=== PATIENT | female | born 1965 | race Caucasian/White ===

== ENCOUNTER → 2017-09-24 | Outpatient (CLI) | payer OTHER, MEDICAID ==
[~2017-09-24] MED LIST: CYCL-259 PO; HYDR-3307 PO; METH750T2 PO; NICO-430 TD; SIMV10TA3 PO; TRAM50TA2 PO; hydrocodone PO; singulair PO
== END | disposition home or self-care (01) ==
LOC: CFH 16:52
PROVIDERS: ATTEND Nurse Practitioner
DX: M47.812 Spondylosis without myelopathy or radiculopathy, cervical region (principal); Z98.890 Other specified postprocedural states
CPT/HCPCS: 72040

== ENCOUNTER → 2017-11-27 | Outpatient (CLI) | payer OTHER, MEDICAID | END | disposition home or self-care (01) | LOC: CFH 16:53 | PROVIDERS: ATTEND Pain Medicine Pain Medicine | DX: M79.672 Pain in left foot (principal) ==

== ENCOUNTER 2018-06-04 16:14 | Emergency (ER) | payer MEDICAID, OTHER ==
[~2018-06-04] VITALS: Ht 162.6 cm; Wt 80.4 kg
[2018-06-04] MEDS ORDERED: ONDANSETRON ODT 4 MG ONE (16:48)
[2018-06-04] MEDS ORDERED: ASPIRIN 81 MG TABLET CHEW ONE (16:48)
--- NOTE | 2018-06-04 16:50 | NUR ---
Assumed care of patient. C/O left sided CP wrapping around to back x 5 days. Pain is constant, but increases with movement and deep inspiration. Placed on NIBP, pulse ox and cardiac rehabilitation specialist. ASA and zofran admin. Will continue to monitor.
[2018-06-04] MEDS ORDERED: ASPIRIN 81 MG TABLET CHEW PO ONE (17:00)
[2018-06-04] MEDS ORDERED: ONDANSETRON ODT 4 MG PO ONE (17:00)
[2018-06-04 17:28] LABS: BASOPHILS # (AUTO) 0.02 x10^3/uL (0-0.1); BASOPHILS % (AUTO) 1 % (0-1); EOSINOPHILS # (AUTO) 0.12 x10^3/uL (0-0.4); EOSINOPHILS % (AUTO) 3 % (1-7); LYMPHOCYTES # (AUTO) 2.21 x10^3/uL (1-3.4); LYMPHOCYTES % (AUTO) 47 % (22-44); MD NO; MEAN CORPUSCULAR HEMOGLOBIN 29.1 pg (27.0-34.8); MEAN CORPUSCULAR HGB CONC 34.6 g/dL (32.4-35.8); MEAN CORPUSCULAR VOLUME 83.9 fL (80-100); MEAN PLATELET VOLUME 10.1 fL (7.4-10.4); MONOCYTES # (AUTO) 0.27 x10^3/uL (0.2-0.8); MONOCYTES % (AUTO) 6 % (2-9); NEUTROPHILS # (AUTO) 2.04 x10^3/uL (1.8-6.8); NEUTROPHILS % (AUTO) 44 % (42-75); PLATELET COUNT 219 x10^3/uL (130-400); RED BLOOD COUNT 5.05 x10^6/uL (3.82-5.3); RED CELL DISTRIBUTION WIDTH 13.1 % (9.6-15.2)
--- NOTE | 2018-06-04 17:28 | NUR ---
Ambulated to restroom with a steady gait. No other needs.
[2018-06-04 17:33] LABS: ALBUMIN 4.4 g/dL (3.4-5.0); ANION GAP 7 mmol/L (5-15); CALCIUM 9.7 mg/dL (8.5-10.1); CHLORIDE 108 mmol/L (98-107); CREATININE 0.77 mg/dL (0.55-1.02)
[2018-06-04 17:37] LABS: TROPONIN I < 0.015 ng/mL (0.000-0.045)
[2018-06-04 17:52] VITALS: BP 130/67
[2018-06-04] MEDS ORDERED: HYDROcodone/APAP 10/325 MG TABLET ONE (18:09)
[2018-06-04] MEDS ORDERED: HYDROcodone/APAP 10/325 MG TABLET PO ONE (18:30)
--- NOTE | 2018-06-04 18:37 | NUR ---
Patient/Caregiver given discharge instructions and they have confirmed that they understand the instructions. Patient ambulatory with steady gait.
== END 2018-06-04 18:38 | disposition home or self-care (01) ==
LOC: ED 18:32
DX: R07.89 Other chest pain (principal); R09.1 Pleurisy
CPT/HCPCS: 36415; 71046; 80048; 82040; 84484; 85025; 85379; 93005; 99284; J7512; Q0162

== ENCOUNTER 2019-07-29 12:09 | Outpatient (CLI) | payer MEDICAID ==
[~2019-07-29 12:09] MED LIST changes: +BUSPIRONE PO; +CYCLOBENZAPRINE PO; +DULOXETINE PO; +HYDR-3246 PO; -HYDR-3307 PO; +OXYCODONE PO; +SIMV10TA18 PO; -SIMV10TA3 PO; +SIMV20TA19 PO
[2019-07-29] MEDS ORDERED: GADOTERATE 7.5 MMOL/15 ML SYR ONE (18:01)
== END 2019-07-29 23:59 | disposition home or self-care (01) ==
LOC: RAD 12:09
PROVIDERS: ATTEND Psychiatry & Neurology Neurology
DX: M47.814 Spondylosis without myelopathy or radiculopathy, thoracic region (principal); G35 Multiple sclerosis
CPT/HCPCS: 70553; 72156; A9575